=== PATIENT | female | born 1990 ===

== ENCOUNTER 2019-04-14 13:58 | Outpatient (CLI) | payer BC, OTHER ==
[2019-04-14] MEDS ORDERED: Magnevist 469MG/ML 20 ML VIAL ONE (14:31)
--- NOTE | 2019-04-14 15:21 | MRI ---
MRI BRAIN WITHOUT AND WITH GADOLINIUM CONTRAST: HISTORY: Headache. FINDINGS: There is no evidence of acute intracranial hemorrhage or infarct. The ventricles appear normal in si ze, shape, and position. There is no mass effect or shift of midline structures. Polyp partially vi sualized within the sphenoid sinus. There is minimal mucosal thickening in the right maxillary sinus . Air fluid level within the dependent portion of the left maxillary sinus with mild mucosal thicken ing. IMPRESSION: 1. No acute intracranial abnormalities are demonstrated. 2. Left maxillary sinusitis. POS: [facility]
== END 2019-04-14 13:59 | disposition home or self-care (01) ==
LOC: BICMRI 13:58
PROVIDERS: ATTEND Psychiatry & Neurology Neurology
DX: R51 Headache (principal); J32.0 Chronic maxillary sinusitis
CPT/HCPCS: 70553; A9579